=== PATIENT | male | born 1955 | race Caucasian/White ===

== ENCOUNTER → 2016-11-16 | Outpatient (CLI) | payer OTHER ==
--- NOTE | 2016-11-16 08:52 | MR ---
MRI of the Lumbar Spine (Without Contrast) at 0 722 hour Clinical Indications: Lumbar radiculopathy. The patient also reports right lower extremity symptoms. Technique: Sagittal and axial T1 and T2 MR sequences of the lumbar spine without contrast. Axial i maging from T12-S1. Findings: Lumbar vertebral bodies are of normal height without compression fractures. Conus medulla ris appears normal and ends at L2 superior endplate. Bone marrow signal is normal. No masses are evid ent. T12-L1: No desiccation or loss of disk height. Anterior disk bulge is evident with associated anteri or marginal osteophytes. L1-L2: No desiccation or loss of disk height. Anterior disk bulge is evident with anterior marginal o steophytes. L2-L3: No desiccation or loss of disk height. Left anterior disk bulge is evident with left anterior osteophytes. L3-L4: No desiccation or loss of disk height. Anterior disk bulge is present with anterior marginal o steophytes. L4-L5: No desiccation or loss of disk height. There is moderate diffuse disk bulge with right paracen tral posterolateral disk protrusion causing severe spinal stenosis And right lateral recess stenosis with compression upon the right L5 nerve root more prominent. There is mild to moderate bilateral kel ral foraminal stenosis secondary to disk bulge. Mild bilateral facet hypertrophy is present. L5-S1: Mild to moderate desiccation and loss of disk height. There is mild diffuse disk bulge that ex tends into the anterior epidural fat without compression upon the dural sac. There is moderate bilate ral neural foraminal stenosis secondary to disk and osteophyte along with facet hypertrophy. Impression: 1. Moderate diffuse disk bulge at L4-L5 with right paracentral to posterior lateral disk protrusion a s detailed above. 2. Mild to moderate degenerative disk disease at L5-S1 with associated neural foraminal stenosis.
== END ==
LOC: FIMAGING 06:58
PROVIDERS: ATTEND Family Medicine
DX: M51.86 Other intervertebral disc disorders, lumbar region (principal); M51.36 Other intervertebral disc degeneration, lumbar region

== ENCOUNTER → 2017-05-03 | Outpatient (CLI) | payer OTHER | LOC: FIMAGING 08:13 | PROVIDERS: ATTEND Family Medicine | DX: M25.811 Other specified joint disorders, right shoulder (principal); M19.011 Primary osteoarthritis, right shoulder ==

== ENCOUNTER → 2018-08-28 | Outpatient (CLI) | payer OTHER | LOC: FIMAGING 13:26 | PROVIDERS: ATTEND Family Medicine | DX: M51.37 Other intervertebral disc degeneration, lumbosacral region (principal); M51.15 Intervertebral disc disorders with radiculopathy, thoracolumbar region; M51.36 Other intervertebral disc degeneration, lumbar region ==

== ENCOUNTER → 2018-09-06 | Outpatient (CLI) | payer OTHER ==
[~2018-09-06] MED LIST: GADOBUTROL 10 ML VIAL IVP ONE
== END ==
LOC: FIMAGING 12:47
PROVIDERS: ATTEND Family Medicine
DX: M51.06 Intervertebral disc disorders with myelopathy, lumbar region (principal)
CPT/HCPCS: A9585